=== PATIENT | male | born 1940 | race Caucasian/White ===

== ENCOUNTER 2024-04-14 08:35 | Outpatient (OUT) | payer MEDICARE, SELFPAY ==
--- NOTE | 2024-04-14 08:44 | VEIN_ITS ---
Patient Name: SHRUTHI TRONCOSO MR#: [id number] : 1940 Exam Date: 04/14/2024 Ordering Doctor: DR DG VERAS M.D. RADIOLOGY REPORT PROCEDURE: VC EXT VENOUS REFLUX ALEXY LMTD COMPARISON: None. INDICATIONS: Pain due to varicose veins of bilateral legs I83.813 TECHNIQUE: Duplex imaging of the lower extremity to assess the deep and superficial venous system for the presence of deep or superficial venous incompetence and to document the location and severity of disease. The study includes evaluation of the great saphenous vein (GSV), anterior accessory saphenous vein (AASV) and small saphenous vein (SSV). Patient scanned in reverse Trendelenburg and standing. FINDINGS: RIGHT LOWER EXTREMITY: Saphenofemoral Junction Reflux: Yes 11.1mm 2.6 sec GSV: Diam (mm) Reflux/ Time (sec) Proximal Thigh 9.9 Yes 1.4 Mid Thigh 6.4 Yes 3.1 Distal Thigh 3.8 Yes 0.4 Prox Calf 3.9 Yes 3.9 Mid Calf 3.9 Yes 0.9 Saphenopopliteal Junction Reflux: 4.4mm Yes 0.3 SSV: Proximal Calf 2.6 No Mid Calf 2.7 No AASV: Proximal Thigh 7.2 Yes 1.2 Mid Thigh 4.9 Yes 1.9 Distal Thigh Thrombi: No acute or chronic thrombus. Compressibility: Normal. Flow: Mild deep venous reflux. Preforator: Mid medial lower leg measures 3.0 mm with 1.3s reflux. Tech Note: Deep calf veins not well visualized. Incompetent varicose vein medial knee measures 5.2 mm with 0.8s reflux. Medial distal lower leg varicose vein measures 4.2 mm with 0.9s reflux. Mid posterior calf varicose vein measures 2.9 mm with 4.3s reflux. LEFT LOWER EXTREMITY: Saphenofemoral Junction Reflux: Yes 10.0 mm 0.8 sec GSV: Diam (mm) Reflux/Time (sec) Proximal Thigh 10.3 Yes 1.5 Mid Thigh 5.6 Yes 0.3 Distal Thigh 5.3 Yes 4.4 Prox Calf 5.5 Yes 1.3 Mid Calf 3.5 Yes 0.6 Saphenopopliteal Junction Relux: 6.0 mm Yes 0.5 SSV: Proximal Calf 5.5 Yes 1.1 Mid Calf 3.2 Yes 0.4 AASV: Proximal Thigh 6.2 Yes 2.1 Mid Thigh 4.0 Yes 1.1 Distal Thigh Thrombi: No acute or chronic thrombus. Compressibility: Normal. Flow: Mild deep venous reflux. Firer Kiln: Distal medial lower leg 4.5 mm with 1.5s reflux. Tech Note: Deep calf veins not well visualized. Incompetent varicose vein mid medial lower leg measures 4.2 mm with 1.9s reflux. Varicose vein proximal medial lower leg measures 6.2 mm with 1.4s reflux. CONCLUSION: 1. Severe bilateral great saphenous vein venous insufficiency with dilatation and saphenofemoral junction reflux 2. Moderate bilateral anterior accessory saphenous vein venous insufficiency with dilatation 3. Mild left small saphenous vein venous insufficiency with borderline dilatation 4. Mild bilateral deep vein reflux 5. Incompetent left leg perforating vein in the region of the patient's ulceration 6. Bilateral incompetent varicose veins Dictated by: Dg Veras MD on 04/14/2024 at 09:47 Approved by: Dg Veras MD on 04/14/2024 at 09:50
--- NOTE | 2024-04-14 08:44 | VEIN_ITS ---
Patient Name: SHRUTHI TRONCOSO MR#: [id number] : 1940 Exam Date: 04/14/2024 Ordering Doctor: DR DG VERAS M.D. RADIOLOGY REPORT PROCEDURE: [facility] [place] - OFFICE VISIT INITIAL COMPARISON: None. PROGRESS NOTES: 84-year-old female who presents with a long history of lower extremity pain and swelling varicose veins and discoloration culminated in in a nonhealing venous stasis ulceration requiring treatment at the [facility], subsequently he was referred to our center for evaluation. The patient complains of lower extremity pain and swelling exacerbated by sitting and standing and only partially relieved by rest and leg elevation. The patient is unable to wear compression stockings secondary to multiple venous stasis ulcerations and significant weeping of the skin The patient denies any signs and symptoms to suggest arterial ischemia. The patient describes a family history significant for varicose veins and hypertension in his mother. Heart disease in his father . The patient has never smoked. Social alcohol use. No illicit drug use. No history of deep venous thrombus or pulmonary embolus. 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 Bilateral knee replacement. Left shoulder arthroplasty. The patient also has significant renal insufficiency and history of prostate cancer. See separate history and physical for medication list. No prior treatment treatment for varicose or spider veins. The patient is unable to use compression stockings due to active ulcerations and weeping of the scan related to severe subcutaneous edema. Nursing notes were reviewed After history and physical exam I discussed at length the pathophysiology of venous hypertension and possible treatments, therapies and strategies available. We discussed at length the importance of elevating the lower extremities above the level of the heart, increased physical activity and compression stocking use. I discussed with the patient that his symptoms were likely multifactorial and related to heart disease, renal insufficiency, and activity, age as well as venous insufficiency. I did caution the patient that while I expected improvement with treatment, he likely would not have complete resolution. We discussed at length the importance of wearing compression stockings and or wraps and we discussed some strategies around wrapping the weeping areas. The risks benefits and alternatives of intravenous laser ablation, micro foam chemical ablation and injection sclerotherapy were discussed. The patient's questions were answered. Ultrasound venous reflux study performed the same day was discussed at length with the patient. The report demonstrates severe bilateral great saphenous vein venous insufficiency. Moderate bilateral anterior accessory saphenous vein venous insufficiency. Mild left small saphenous vein venous insufficiency. Bilateral deep vein reflux. Incompetent left leg perforating vein in the region of the patient's ulceration. Bilateral incompetent varicose veins. PHYSICAL EXAM: The right leg demonstrates moderate scattered varicose reticular and spider veins. Mild to moderate hemosiderin staining below the knee. Moderate to severe pitting edema. No active ulceration The left leg demonstrates severe scattered varicose, reticular and spider veins. Severe hemosiderin staining skin thickening and reddening. Severe pitting edema. Multiple small areas of healing ulceration. Significant fluid weeping throughout the lower leg Both thighs, legs and feet were symmetrically warm to the touch. Posterior tibial dorsalis pedis pulses cannot be palpated VEIN/[facility] Facility NEW Comprehensive IMPRESSION: 1. Bilateral great , bilateral anterior accessory and left small saphenous vein venous insufficiency with dilatation. Incompetent perforating vein on the left 2. Moderate bilateral lower extremity varicose veins 3. Moderate to severe right and severe left lower extremity subcutaneous edema 4. No definite flow significant arterial disease 5. CEAP: C6, Ep, As, Pr PLAN: 1. Endovenous laser ablation bilateral great saphenous vein, bilateral anterior accessory saphenous vein, left small saphenous vein, left incompetent perforating veins with associated ulceration 2. Bilateral micro foam chemical ablation incompetent varicose and branch saphenous veins Continued use of compression stockings 3. Injection sclerotherapy of reticular and spider veins 4. Elevated legs and increased physical activity for symptomatic relief Nurse notes, history and physical were reviewed and confirmed, see attached forms. The nurse was present throughout the physical exam and consultation Dictated by: Dg Veras MD on 04/14/2024 at 13:40 Approved by: Dg Veras MD on 04/14/2024 at 13:47
== END 2024-04-14 08:36 | disposition home or self-care (01) ==
LOC: VC 08:35
PROVIDERS: PCP Family Medicine; Visit Provider Radiology Diagnostic Radiology
DX: I83.813 Varicose veins of bilateral lower extremities with pain (principal)
CPT/HCPCS: 93970; G0463